=== PATIENT | female | born 1980 | race Caucasian/White ===

== ENCOUNTER → 2016-11-08 | Outpatient (CLI) | payer OTHER | END | disposition home or self-care (01) | LOC: CFH 08:58 | PROVIDERS: ATTEND Nurse Practitioner Primary Care | DX: R10.11 Right upper quadrant pain (principal) | CPT/HCPCS: 76700 ==

== ENCOUNTER 2020-09-05 14:08 | Emergency (ER) | payer OTHER ==
[~2020-09-05] VITALS: Ht 167.6 cm; Wt 118.0 kg
--- NOTE | 2020-09-05 14:28 | NUR ---
PT AMBULATORY TO ROOM 34 W/ C/O FACIAL NUMBNESS. PT STATES HX FACIAL NUMBNESS BASELINE SINCE 2011 AND WAS TOLD IT WAS SECONDARY TO AN INFECTED NERVE. PT STATES SHE HAS NOTICED THAT WHEN SHE GETS STRESSED THE NUMBNESS GETS WORSE. PT ALSO STATES HER WENT BACKPACKING MONDAY AND THAT IS WHEN THE NUMBNESS INCREASED AND WENT BEYOND HER NORMAL AREAS OF HER FACE. PT DENIES SLURRED SPEECH, DIFFICULTY SWALLOWING, WEAKNESS. PT RESTING ON GURNEY. NADN. MONITORS APPLIED. VSS. WARM BLANKET PROVIDED. CALL LIGHT IN REACH.
--- NOTE | 2020-09-05 14:32 | NUR ---
ERP DR. KOLB AT BEDSIDE FOR EVAL.
--- NOTE | 2020-09-05 14:52 | NUR ---
PT RESTING ON GURNEY. NADN. ROMERO.
[2020-09-05] MEDS ORDERED: SODIUM CHLORIDE FLUSH 10ML SYR IVF ONE (15:00)
[2020-09-05 15:07] LABS: BASOPHILS % (AUTO) 1 % (0-1); EOSINOPHILS % (AUTO) 1 % (1-7); LYMPHOCYTES % (AUTO) 24 % (22-44); MEAN CORPUSCULAR HGB CONC 32.5 g/dL (32.4-35.8); MEAN PLATELET VOLUME 8.4 fL (7.4-10.4); MONOCYTES % (AUTO) 7 % (2-9); NEUTROPHILS % (AUTO) 68 % (42-75); PLATELET COUNT 261 x10^3/uL (130-400); RED BLOOD COUNT 4.96 x10^6/uL (3.82-5.3); RED CELL DISTRIBUTION WIDTH 14.4 % (9.6-15.2)
--- NOTE | 2020-09-05 15:10 | NUR ---
PT TAKEN TO MRI IN STABLE CONDITION.
[2020-09-05 15:11] LABS: ANION GAP 6 mmol/L (5-15); CALCIUM 8.4 mg/dL (8.5-10.1); CHLORIDE 110 mmol/L (98-107); CREATININE 0.83 mg/dL (0.55-1.02)
[2020-09-05 15:12] LABS: ALBUMIN 3.7 g/dL (3.4-5.0)
--- NOTE | 2020-09-05 16:14 | NUR ---
PT REMAINS IN CT. UNABLE TO UPDATE VS.
[2020-09-05] MEDS ORDERED: GADOTERATE 10 MMOL/20ML SYR ONE (16:20)
--- NOTE | 2020-09-05 16:34 | NUR ---
PT BACK FROM CT. PT RESTING ON NIKITA. NADN. ROMERO.
[2020-09-05 17:17] VITALS: BP 122/74
--- NOTE | 2020-09-05 17:18 | NUR ---
PT RESTING ON GURNEY. NADN. ROMERO.
== END 2020-09-05 17:31 | disposition home or self-care (01) ==
LOC: ED 17:00
DX: G50.0 Trigeminal neuralgia (principal)
CPT/HCPCS: 36415; 70553; 80048; 82040; 85025; 99284; A9575

== ENCOUNTER 2020-09-09 16:06 | Outpatient (CLI) | payer OTHER ==
[2020-09-09 16:57] LABS: BASOPHILS % (AUTO) 1 % (0-1); EOSINOPHILS % (AUTO) 1 % (1-7); HCT (SEDRATE) 40.4 % (34.6-47.8); LYMPHOCYTES % (AUTO) 22 % (22-44); MEAN CORPUSCULAR HEMOGLOBIN 26.9 pg (27.0-34.8); MEAN CORPUSCULAR HGB CONC 32.7 g/dL (32.4-35.8); MEAN PLATELET VOLUME 8.4 fL (7.4-10.4); MONOCYTES % (AUTO) 7 % (2-9); NEUTROPHILS % (AUTO) 69 % (42-75); PLATELET COUNT 244 x10^3/uL (130-400); RED CELL DISTRIBUTION WIDTH 14.5 % (9.6-15.2)
[2020-09-09 17:02] LABS: ALBUMIN 3.7 g/dL (3.4-5.0); ANION GAP 5 mmol/L (5-15); C-REACTIVE PROTEIN, QUANT 0.48 mg/dL (0.02-0.49); CALCIUM 8.2 mg/dL (8.5-10.1); CHLORIDE 108 mmol/L (98-107)
[2020-09-09 17:06] LABS: % IRON SATURATION 50 % (20-55); ALANINE AMINOTRANSFERASE 18 U/L (12-78); ALKALINE PHOSPHATASE 73 U/L (45-117); BILIRUBIN,TOTAL 0.6 mg/dL (0.2-1.0); CREATININE 0.88 mg/dL (0.55-1.02); IRON LEVEL 168 mcg/dL (50-170); TOTAL IRON BINDING CAPACITY 335 mcg/dL (250-450); TOTAL PROTEIN 7.4 g/dL (6.4-8.2); TRANSFERRIN 263 mg/dL (200-360)
== END 2020-09-09 23:59 | disposition home or self-care (01) ==
LOC: LAB 16:06
PROVIDERS: ATTEND Nurse Practitioner Primary Care
DX: Z13.220 Encounter for screening for lipoid disorders (principal); E78.2 Mixed hyperlipidemia; E55.9 Vitamin D deficiency, unspecified; N39.0 Urinary tract infection, site not specified; R20.2 Paresthesia of skin; R25.1 Tremor, unspecified; F06.31 Mood disorder due to known physiological condition with depressive features; R06.83 Snoring; E88.81 Metabolic syndrome and other insulin resistance; Z68.37 Body mass index [BMI] 37.0-37.9, adult; Z79.899 Other long term (current) drug therapy
CPT/HCPCS: 36415; 80053; 82728; 83520; 83540; 83550; 83735; 83970; 84100; 84466; 85025; 85651; 86140; 86256; 86787